=== PATIENT | male | born 1970 | race Caucasian/White ===

== ENCOUNTER 2024-05-05 15:04 | Emergency (ER) | payer OTHER ==
[~2024-05-05] VITALS: Ht 170.2 cm; Wt 108.9 kg
[2024-05-05 15:24] VITALS: PULSE 86; RESP 20; TEMP 98.2
[2024-05-05] MEDS ORDERED: DIAZEPAM 5 MG TAB PO PRN (15:45)
[2024-05-05] MEDS ORDERED: CHLORDIAZEPOXID25 MG PO (15:49)
[2024-05-05] MEDS: LORAZEPAM 0.5 MG TAB PO ONE (16:06)
[2024-05-05 16:48] VITALS: BP 130/86; RESP 20; O2SAT 97
== END 2024-05-05 16:50 | disposition home or self-care (01) ==
LOC: FSED 15:10
DX: F10.10 Alcohol abuse, uncomplicated (principal); I48.91 Unspecified atrial fibrillation
CPT/HCPCS: 93005; 99282